=== PATIENT | female | born 1985 | race Caucasian/White ===

== ENCOUNTER → 2020-02-26 | Outpatient (CLI) | payer BC ==
[~2020-02-26] MED LIST: LORTAB 5/500 501 TAB PO
== END ==
LOC: MC.RAD 14:45
DX: Z12.31 Encounter for screening mammogram for malignant neoplasm of breast (principal); Z91.89 Other specified personal risk factors, not elsewhere classified; Z80.3 Family history of malignant neoplasm of breast; N64.89 Other specified disorders of breast

== ENCOUNTER → 2020-03-03 | Outpatient (CLI) | payer BC | LOC: MC.RAD 09:00 | DX: N64.89 Other specified disorders of breast (principal); Z80.3 Family history of malignant neoplasm of breast; Z91.89 Other specified personal risk factors, not elsewhere classified ==

== ENCOUNTER 2023-08-02 15:48 | Emergency (ER) | payer SELFPAY ==
[~2023-08-02] VITALS: Ht 170.2 cm; Wt 100.0 kg
[2023-08-02 16:04] VITALS: BP 157/81; TEMP 99.2
[2023-08-02] MEDS ORDERED: FLEXERIL 1010 MG/TAB PO (17:09)
[2023-08-02 17:21] VITALS: PULSE 95
== END 2023-08-02 17:21 | disposition home or self-care (01) ==
LOC: COL.ER 15:48
DX: S06.0X0A Concussion without loss of consciousness, initial encounter (principal); M54.2 Cervicalgia; V43.52XA Car driver injured in collision with other type car in traffic accident, initial encounter; Y92.410 Unspecified street and highway as the place of occurrence of the external cause